=== PATIENT | female | born 1990 | race Caucasian/White ===

== ENCOUNTER 2017-10-23 07:56 | Day surgery (SDC) | payer MEDICAID ==
[2017-10-20 16:18] LABS: CLARITY,URINE CLEAR (Clear); COLOR,URINE YELLOW (Yellow); GLUCOSE, URINE NEGATIVE (Neg); KETONES,URINE NEGATIVE (Neg); LEUKOCYTE ESTERASE ,URINE NEGATIVE (Neg); NITRITES, URINE NEGATIVE (Neg); OCCULT BLOOD,URINE TRACE-INTACT (Neg); PH,URINE 6.5 (4.8-8.0); PROTEIN,URINE NEGATIVE (Neg); UROBILINOGEN,URINE 0.2 E.U/dL (0.2-1.0)
[2017-10-20 16:20] LABS: BASOPHILS % (AUTO) 0.3 % (0-1); EOSINOPHILS # (AUTO) 0.7 X10'3 (0-0.9); EOSINOPHILS % (AUTO) 7.8 % (0-6); LYMPHOCYTES # (AUTO) 2.4 X10'3 (1.1-4.8); LYMPHOCYTES % (AUTO) 27.5 % (21-51); MEAN CORPUSCULAR HGB CONC 33.9 % (33.0-36.5); MEAN CORPUSCULAR VOLUME 85.5 FL (78-98); MEAN PLATELET VOLUME 9.2 FL (7.4-10.4); MONOCYTES # (AUTO) 0.4 X10'3 (0-0.9); MONOCYTES % (AUTO) 4.5 % (2-12); NEUTROPHILS # (AUTO) 5.3 X10'3 (1.8-7.7); NEUTROPHILS % (AUTO) 59.9 % (42-75); PRE OP HEMATOCRIT 39.2 % (35.0-45.0); PRE OP HEMOGLOBIN 13.3 g/dL (12.0-16.0); PRE OP PLATELET COUNT 242 X10'3 (140-440); RED BLOOD COUNT 4.59 X10'6 (4.20-5.60); RED CELL DISTRIBUTION WIDTH 13.5 % (11.5-14.5)
[2017-10-20 16:22] LABS: UA COLLECTION TYPE CLN CATCH MIDSTREAM
[2017-10-20 16:24] LABS: BACTERIA,URINE NONE SEEN /HPF (Neg); WBC,URINE 0-4 /HPF (0-4)
[2017-10-20 16:25] LABS: SQUAMOUS EPITHELIAL CELL,UR FEW /LPF (FEW)
[2017-10-20 16:25] LABS: PRE OP INR 0.9 INR; PRE OP PROTIME 9.7 SECONDS (9.0-12.0)
[2017-10-20 16:32] LABS: ALKALINE PHOSPHATASE 84 IU/L (46-116); BLOOD UREA NITROGEN 14 MG/DL (7-18); BUN/CREATININE RATIO 16.1 (6.6-38.0); CHLORIDE 104 MMOL/L (99-107); CREATININE 0.87 MG/DL (0.40-0.90); PRE OP ALT 19 U/L (30-65); PRE OP ANION GAP 10 (8-16); PRE OP AST 10 U/L (10-37); PRE OP BILIRUB, TOTAL 0.3 MG/DL (0.0-1.0); PRE OP GLUCOSE 128 MG/DL (70-104); PRE OP SODIUM 143 MMOL/L (135-145); TOTAL CARBON DIOXIDE 29.3 MMOL/L (24-32); TOTAL PROTEIN 7.9 G/DL (6.4-8.2); eGFR 78 ML/MIN
[2017-10-20 16:34] LABS: HCG SERUM QL NEGATIVE
[2017-10-20 16:36] LABS: PRE OP POTASSIUM 3.3 MMOL/L (3.4-5.1)
[~2017-10-23] VITALS: Ht 165.1 cm; Wt 65.8 kg
[2017-10-23] VITALS (18 sets, daily range): BP systolic 97–124; BP diastolic 51–78
[~2017-10-23 07:56] MED LIST: CETI-102 PO; ceFOXitin 2 GM ADDvantage bag 100 ML IV ONE; famotidine 20mg tablet PO ONE
[2017-10-23] MEDS ORDERED: LIDOcaine 1% (10mg/ml) 2ml vial ONE (08:22)
[2017-10-23] MEDS: ringers solution, lacted 1,000 ML IV SCH ×3 (08:38→22:01)
[2017-10-23] MEDS ORDERED: morphine sulfate /PF 0.5 MG/ML 10mL ampul ONE (08:42)
[2017-10-23] MEDS ORDERED: midazolam 2 mg/2 ml injection ONE (08:42)
[2017-10-23] MEDS ORDERED: fentaNYL/PF 50MCG/1 ML 2ML syringe ONE (08:42)
[2017-10-23] MEDS ORDERED: clindamycin phosphate 40gm vag cream ONE (09:30)
[2017-10-23] MEDS ORDERED: epiNEPHrine 1 mg/ml inj ONE (09:31)
[2017-10-23] MEDS ORDERED: BUPIVAcaine/PF 2.5 mg/ml (0.25%) 30ml vial ONE (09:31)
[2017-10-23] MEDS ORDERED: neomy sulf/polymyxin B sulf. GU irrigation 1ml amp IR ONE (09:32)
[2017-10-23] MEDS ORDERED: vasoPRESSIN 20 units/ml inj. ONE (09:32)
[2017-10-23 09:35] LABS: ISTAT ANION GAP 10 (8-12); ISTAT BUN 10 mg/dL (6-19); ISTAT CL 103 mmol/L (99-107); ISTAT CREATININE 0.7 mg/dL (0.6-1.1); ISTAT GLUCOSE 97 mg/dL (70-104); ISTAT HGB 11.6 g/dl (12.0-16.0); ISTAT Hct 34 %PCV (35-48); ISTAT IONIZED CALCIUM 1.19 mmol/L (1.03-1.32); ISTAT K 3.8 mmol/L (3.5-5.1); ISTAT NA 139 mmol/L (135-145); ISTAT TOTAL CO2 26 mmol/L (24-32); ISTAT eGFR > 90 ML/MIN; POC BUN/CREATININE RATIO 14.3 (6.6-38.0)
[2017-10-23] MEDS ORDERED: rocuronium 10mg/ml inj IV ONE ×2 (10:31→13:03)
[2017-10-23] MEDS ORDERED: propofol inj 20 ML IV ONE (10:31)
[2017-10-23] MEDS ORDERED: desflurane 240ml liquid inh. IH ONE (11:30)
[2017-10-23] MEDS ORDERED: ondansetron/PF 4mg/2ml inj ONE (11:46)
[2017-10-23] MEDS ORDERED: ketorolac trometh. 30mg/ml inj. ONE (11:46)
[2017-10-23] MEDS ORDERED: ringers solution, lacted 1,000 ML IV SCH (12:09)
[2017-10-23] MEDS ORDERED: proCHLORperazine 10 MG/2 ml inj IV PRN (12:10)
[2017-10-23] MEDS ORDERED: HYDROmorphone inj. 0.5 MG/0.5 ML DISP.SYRIN IV PRN ×2 (12:10)
[2017-10-23] MEDS ORDERED: ondansetron/PF 4mg/2ml inj IV PRN ×2 (12:10→13:05)
[2017-10-23] MEDS ORDERED: meperidine/PF 50mg/ml syringe IV PRN (12:10)
[2017-10-23] MEDS ORDERED: fentaNYL/PF 50MCG/1 ML 2ML syringe IV PRN (12:10)
[2017-10-23] MEDS ORDERED: temazepam 15mg capsule PO PRN (13:05)
[2017-10-23] MEDS ORDERED: LORazepam 2 mg/ml vial IV PRN (13:05)
[2017-10-23] MEDS ORDERED: LIDOcaine 1%/PF (10mg/ml) 5ml vial ONE (13:05)
[2017-10-23] MEDS ORDERED: magnesium hydroxide 30ml (MOM) UD suspension PO PRN (13:05)
[2017-10-23] MEDS ORDERED: diphenhydrAMINE 50 mg/ml inj IV PRN (13:05)
[2017-10-23] MEDS ORDERED: metoclopramide 5 mg/ml inj IV PRN (13:05)
[2017-10-23] MEDS ORDERED: HYDROcodone/acetaminophen 10/325mg tab PO PRN (13:05)
[2017-10-23] MEDS ORDERED: normal saline 500ml IV soln 500 ML IV PRN (13:05)
[2017-10-23] MEDS: fentaNYL/PF 50MCG/1 ML 2ML syringe IV PRN ×2 (13:21→13:31)
[2017-10-23] MEDS: HYDROcodone/acetaminophen 10/325mg tab PO PRN ×2 (15:07→19:37)
[2017-10-23] MEDS: simethicone 80mg chew tab PO SCH (17:53)
[2017-10-23] MEDS: ketorolac trometh. 30mg/ml inj. IV PRN (17:56)
[2017-10-23] MEDS: docusate sod 100mg capsule PO SCH (19:37)
[2017-10-24] MEDS: ketorolac trometh. 30mg/ml inj. IV PRN (01:55)
[2017-10-24 06:03] LABS: BASOPHILS % (AUTO) 0.2 % (0-1); EOSINOPHILS % (AUTO) 0 % (0-6); HEMATOCRIT 33.3 % (35.0-45.0); HEMOGLOBIN 11.5 g/dl (12.0-16.0); LYMPHOCYTES # (AUTO) 1.2 X10'3 (1.1-4.8); LYMPHOCYTES % (AUTO) 9.7 % (21-51); MEAN CORPUSCULAR HGB CONC 34.4 % (33.0-36.5); MEAN CORPUSCULAR VOLUME 84.4 FL (78-98); MEAN PLATELET VOLUME 9.3 FL (7.4-10.4); MONOCYTES # (AUTO) 0.7 X10'3 (0-0.9); MONOCYTES % (AUTO) 5.6 % (2-12); NEUTROPHILS # (AUTO) 10.4 X10'3 (1.8-7.7); NEUTROPHILS % (AUTO) 84.5 % (42-75); PLATELET COUNT 213 X10'3 (140-440); RED BLOOD COUNT 3.95 X10'6 (4.20-5.60); RED CELL DISTRIBUTION WIDTH 13.2 % (11.5-14.5); WHITE BLOOD COUNT 12.3 X10'3 (4.5-11.0)
[2017-10-24 06:15] LABS: ALBUMIN 3.2 G/DL (3.4-5.0); ANION GAP 6 (8-16); BLOOD UREA NITROGEN 10 MG/DL (7-18); CALCIUM 8.6 MG/DL (8.5-10.1); CHLORIDE 106 MMOL/L (99-107); CREATININE 0.91 MG/DL (0.40-0.90); GLUCOSE 121 MG/DL (70-104); POTASSIUM 3.9 MMOL/L (3.5-5.1); SODIUM 141 MMOL/L (135-145); TOTAL CARBON DIOXIDE 28.8 MMOL/L (24-32); eGFR 74 ML/MIN
[2017-10-24 07:00] VITALS: BP 134/53
[2017-10-24] MEDS: simethicone 80mg chew tab PO SCH (07:11)
[2017-10-24] MEDS: HYDROcodone/acetaminophen 10/325mg tab PO PRN (07:11)
[2017-10-24] MEDS: docusate sod 100mg capsule PO SCH (07:11)
[2017-10-24] MEDS ORDERED: enoxaparin 40mg/0.4ml syringe SQ SCH (08:00)
[2017-10-24 11:00] VITALS: BP 111/76
[2017-10-24] MEDS ORDERED: NO HOME MEDS ×2 (12:16→12:21)
== END 2017-10-24 12:45 | disposition home or self-care (01) ==
LOC: PAS 07:56 → SUR 3N 13:02 → MED 3N 15:38 → PAS 10-24 12:45
PROVIDERS: ATTEND Obstetrics & Gynecology Obstetrics
DX: D06.7 Carcinoma in situ of other parts of cervix (principal); J45.998 Other asthma; G43.909 Migraine, unspecified, not intractable, without status migrainosus; Z79.1 Long term (current) use of non-steroidal anti-inflammatories (NSAID); Z87.891 Personal history of nicotine dependence; Z72.89 Other problems related to lifestyle; Z79.01 Long term (current) use of anticoagulants; Z85.41 Personal history of malignant neoplasm of cervix uteri; Z79.899 Other long term (current) drug therapy
CPT/HCPCS: 36415; 58552; 80047; 80048; 80053; 81001; 84703; 85025; 85610; 85730; 86885; 86900; 86901; 87070; A4315; J0171; J0694; J1650; J1885; J2001; J2175; J2250; J2274; J2405; J2704; J3010; J3490; J7030; J7120; A7000

== ENCOUNTER 2018-05-31 15:46 | Emergency (ER) | payer MEDICAID ==
[~2018-05-31] VITALS: Ht 165.1 cm; Wt 70.5 kg
[~2018-05-31 15:46] MED LIST changes: +NO HOME MEDS; -ceFOXitin 2 GM ADDvantage bag 100 ML IV ONE; -famotidine 20mg tablet PO ONE
[2018-05-31 16:28] LABS: BASOPHILS % (AUTO) 0.4 % (0-1); EOSINOPHILS # (AUTO) 0.2 X10'3 (0-0.9); EOSINOPHILS % (AUTO) 3.1 % (0-6); HEMATOCRIT 39.2 % (35.0-45.0); HEMOGLOBIN 12.9 g/dl (12.0-16.0); MEAN CORPUSCULAR HEMOGLOBIN 28.1 PG (27.0-31.0); MEAN CORPUSCULAR HGB CONC 32.8 % (33.0-36.5); MEAN CORPUSCULAR VOLUME 85.6 FL (78-98); MEAN PLATELET VOLUME 8.8 FL (7.4-10.4); MONOCYTES # (AUTO) 0.3 X10'3 (0-0.9); MONOCYTES % (AUTO) 5.2 % (2-12); NEUTROPHILS # (AUTO) 4.1 X10'3 (1.8-7.7); NEUTROPHILS % (AUTO) 61.3 % (42-75); PLATELET COUNT 249 X10'3 (140-440); RED BLOOD COUNT 4.58 X10'6 (4.20-5.60); RED CELL DISTRIBUTION WIDTH 13.8 % (11.5-14.5); WHITE BLOOD COUNT 6.7 X10'3 (4.5-11.0)
[2018-05-31 16:44] LABS: ALANINE AMINOTRANSFERASE 20 U/L (12-78); ALBUMIN 3.8 G/DL (3.4-5.0); ALBUMIN/GLOBULIN RATIO 1.1 (1.1-1.5); ALKALINE PHOSPHATASE 73 IU/L (46-116); ANION GAP 7 (8-16); ASPARTATE AMINO TRANSFERASE 10 U/L (10-37); BILIRUBIN,TOTAL 0.2 MG/DL (0.1-1.0); BLOOD UREA NITROGEN 15 MG/DL (7-18); BUN/CREATININE RATIO 15.8 (6.6-38.0); CALCIUM 9.3 MG/DL (8.5-10.1); CHLORIDE 103 MMOL/L (99-107); CREATININE 0.95 MG/DL (0.40-0.90); GLUCOSE 124 MG/DL (70-104); LIPASE 245 U/L (73-393); POTASSIUM 3.5 MMOL/L (3.5-5.1); SODIUM 138 MMOL/L (135-145); TOTAL CARBON DIOXIDE 28.5 MMOL/L (24-32); TOTAL PROTEIN 7.3 G/DL (6.4-8.2); eGFR 70 ML/MIN
[2018-05-31 16:51] LABS: PARTIAL THROMBOPLASTIN TIME 32 SECONDS (22-32); PROTHROMBIN TIME 10.3 SECONDS (9.0-12.0)
[2018-05-31] MEDS ORDERED: IBUP-1984 PO (17:13)
[2018-05-31 17:23] VITALS: BP 116/67
== END 2018-05-31 17:24 | disposition home or self-care (01) ==
LOC: ER 15:47
DX: R07.89 Other chest pain (principal); J45.909 Unspecified asthma, uncomplicated; Z90.710 Acquired absence of both cervix and uterus; Z79.899 Other long term (current) drug therapy
CPT/HCPCS: 36415; 71045; 80053; 83690; 84484; 85025; 85610; 85730; 93005; 99284